=== PATIENT | female | born 1980 | race Caucasian/White ===

== ENCOUNTER 2023-03-03 19:57 | Emergency (ER) | payer SELFPAY ==
[2023-03-03] MEDS ORDERED: Famotidine/PF 20 mg/2ml Vial ONE (20:21)
[2023-03-03] MEDS ORDERED: methylPREDNISolone Sod Succ/PF 125 MG/2 ML VIAL ONE (20:21)
[2023-03-03 21:25] LABS: Bacteria/HPF 4+ HPF (None Seen); Bilirubin Negative (Negative); Blood, Urine Negative (Negative); CAUTI Indications for Culture Pelvic or flank pain; Clarity Turbid (Clear); Glucose, Urine (Dipstick) Normal (Negative); Ketone, Urine Negative (Negative); Leukocyte 75 Leu/uL (Negative); Nitrite 1+ (Negative); Protein, Urine (Dipstick) 10 mg/dL (Neg-Trace); RBC/HPF 0-3 HPF (0-3); Specific Gravity, Urine 1.019 (1.002-1.036); Squamous Epithelial 0-3 HPF (0-3); Urobilinogen Normal mg/dL (Less than 2); WBC/HPF 21-50 HPF (0-3); pH, Urine 7.5 (5.0-9.0)
[2023-03-03 21:26] LABS: Urine Culture Reflex Yes Yes
== END 2023-03-03 22:23 | disposition home or self-care (01) ==
LOC: ERS 19:57
DX: J30.1 Allergic rhinitis due to pollen (principal); N39.0 Urinary tract infection, site not specified; I10 Essential (primary) hypertension
CPT/HCPCS: 81001; 87077; 87086; 87186; 96361; 96374; 96375; J2930; S0028

== ENCOUNTER 2023-03-07 11:29 | Emergency (ER) | payer SELFPAY ==
[2023-03-07] MEDS ORDERED: diphenhydrAMINE 50 MG/ML VIAL ONE (12:04)
[2023-03-07] MEDS ORDERED: predniSONE 20 MG TAB ONE (12:04)
[2023-03-07] MEDS ORDERED: Famotidine 20 MG TAB ONE ×2 (12:04→12:05)
== END 2023-03-07 12:09 | disposition home or self-care (01) ==
LOC: ERS 11:29
DX: T78.40XA Allergy, unspecified, initial encounter (principal); I10 Essential (primary) hypertension
CPT/HCPCS: 96372; 99283; J1200; J7512